=== PATIENT | female | born 1990 | race Caucasian/White ===

== ENCOUNTER 2023-11-20 11:45 | Emergency (ER) | payer OTHER ==
--- NOTE | 2023-11-20 13:47 | XRAY Report ---
PROCEDURE: Chest 1V INDICATIONS: cough 6 weeks. TECHNIQUE: One view of the chest was acquired. COMPARISON: None. FINDINGS: Surgical changes and devices: None. Lungs and pleura: No pleural effusions or pneumothorax. Lungs are clear. Mediastinum: Mediastinal contours appear normal. Heart size is normal. Bones and chest wall: No suspicious bony lesions. Overlying soft tissues appear unremarkable. IMPRESSION: No acute cardiopulmonary process. No focal infiltrates are seen. Reviewed by: Alexis Schuster MD on 11/20/2023 12:46 PM [facility] Approved by: Alexis Schuster MD on 11/20/2023 12:46 PM [facility] Station ID: [id number]
--- NOTE | 2023-11-20 17:08 | ED Physician Documentation ---
PD HPI URI - Stated complaint Stated Complaint: COUGH [id number] - Chief complaint Chief Complaint: Resp - History obtained from History obtained from: Patient - Additional information Additional information: Patient is a 33-year-old female presenting for evaluation of a dry cough that has been present for the past 5 weeks along with nasal congestion. Patient states that she has been using an [id number] Synex nasal decongestant for the past week and her congestion has been getting worse. She says that when her symptoms initially started she had some other symptoms that felt flulike but she tested negative for flu, COVID and RSV. Her cough is sometimes productive of yellow sputum. She states that the cough is worse at night. She also reports having a sore throat. No fevers. No chest pain or shortness of air. Denies recent travel or sick contacts. Review of Systems Constitutional: denies: Fever Nose: reports: Congestion Throat: reports: Sore throat Cardiac: denies: Chest pain / pressure Respiratory: reports: Cough. denies: Dyspnea GI: denies: Vomiting PD PAST MEDICAL HISTORY - Past Medical History Past Medical History: No - Past Surgical History Past Surgical History: No - Allergies Allergies/Adverse Reactions: Allergies Allergy/AdvReac Type Severity Reaction Status Date / Time No Known Drug Allergies Allergy Verified 11/20/23 12:18 - Social History Does the pt smoke?: No Smoking Status: Never smoker Does the pt drink ETOH?: No Does the pt have substance abuse?: No - Immunizations Immunizations are current?: Yes PD ED PE NORMAL - General General: Alert and oriented X 3, No acute distress, Well developed/nourished - HEENT HEENT: Atraumatic, Ears normal, Moist mucous membranes, Pharynx benign - Neck Neck: Supple, no meningeal sign, No adenopathy - Cardiac Cardiac: RRR, No murmur - Respiratory Respiratory: No respiratory distress, Clear bilaterally - Derm Derm: Warm and dry - Neuro Neuro: Normal speech Results - Vitals Vitals: Vital Signs - 24 hr 11/20/23 11/20/23 12:14 17:54 Temperature 36.1 C L 36.7 C Heart Rate 88 97 Respiratory 16 18 Rate Blood Pressure 138/92 H 115/65 O2 Saturation 100 99 Oxygen O2 Source Room air - Labs Labs: Laboratory Tests 11/20/23 11/20/23 16:53 16:53 Nasal Adenovirus (PCR) NOT DETECTED Nasal B. parapertussis DNA (PCR) NOT DETECTED Nasal Coronavir 229E PCR NOT DETECTED Nasal Coronavir HKU1 PCR NOT DETECTED Nasal Coronavir NL63 PCR NOT DETECTED Nasal Coronavir OC43 PCR NOT DETECTED Nasal Enterovir/Rhinovir PCR DETECTED A Nasal Influenza B PCR NOT DETECTED Nasal Influenza A PCR NOT DETECTED Nasal Parainfluen 1 PCR NOT DETECTED Nasal Parainfluen 2 PCR NOT DETECTED Nasal Parainfluen 3 PCR NOT DETECTED Nasal Parainfluen 4 PCR NOT DETECTED Nasal RSV (PCR) NOT DETECTED Nasal B.pertussis DNA PCR NOT DETECTED Nasal C.pneumoniae (PCR) NOT DETECTED Giacomo Human Metapneumo PCR NOT DETECTED Nasal M.pneumoniae (PCR) NOT DETECTED Nasal SARS-CoV-2 (PCR) NOT DETECTED Group A Strep Rapid Negative PD Medical Decision Making - ED course Complexity details: reviewed results, re-evaluated patient, d/w patient ED course: Patient is a 33-year-old female presenting for evaluation of cough and nasal congestion that been ongoing for several weeks. Her vital signs are stable. Her lung sounds are clear. She does not smoke. Chest x-ray which I reviewed is negative for signs of focal consolidation or pneumonia or effusion. Strep test was ordered which is negative. Patient was given a dose of Decadron for viral pharyngitis. Respiratory swab is pending. Patient counseled that she should stop the sinus nasal spray as it appears to be oxymetazoline And I did advise that this could be making her nasal congestion worse. Patient counseled on continued supportive care as well as concerning symptoms to return for. Departure - Departure Disposition: 01 Home, Self Care Clinical Impression: Upper respiratory infection Condition: Stable Instructions: ED Viral Syndrome Comments: Your chest x-ray does not show pneumonia. Please stop taking the sinus nasal spray as this can cause worsening congestion is used more than 3 days. You may benefit from a trial of using a saline spray in the nose to help loosen any congestion. Your strep test is negative. I have given you a dose of Decadron to see if this will help with the inflammation you are feeling in your throat as well as may help with your postviral cough. Your respiratory panel is pending. This will check for COVID, influenza, RSV and a number of other common cold viruses. We will notify you if it is positive for COVID. Otherwise you can check the patient portal for your results. You should quarantine from others until you know your COVID result. Please continue with acetaminophen or ibuprofen as needed for fevers and body aches, plenty of fluids/hydration and rest. Return to the ER with any worsening symptoms such as difficulty breathing or vomiting. Forms: PCP List Discharge Date/Time: 11/20/23 17:54
[2023-11-20 17:10] LABS: RAPID STREP SCREEN Negative (Negative)
[2023-11-20] MEDS ORDERED: CHERRY SYRUP 10 ML UDC PO ONE (17:23)
[2023-11-20] MEDS ORDERED: DEXAMETHASONE 10 MG/ML VIAL PO STA (17:23)
[2023-11-20 17:52] LABS: B. PARAPERTUSSIS- RESP PCR PAN NOT DETECTED; B. PERTUSSIS- RESP PCR PANEL NOT DETECTED; C. PNEUMONIAE- RESP PCR PANEL NOT DETECTED; CORONAVIRUS 229E-RESP PCR NOT DETECTED; CORONAVIRUS HKU1-RESP PCR NOT DETECTED; CORONAVIRUS NL63-RESP PCR NOT DETECTED; CORONAVIRUS OC43-RESP PCR NOT DETECTED; HUMAN METAPNEUMOVIRUS NOT DETECTED; INFLUENZA A- RESP PCR PANEL NOT DETECTED; INFLUENZA B - RESP PCR PANEL NOT DETECTED; M. PNEUMONIAE- RESP PCR PANEL NOT DETECTED; PARAINFLUENZA VIRUS 1 NOT DETECTED; PARAINFLUENZA VIRUS 2 NOT DETECTED; PARAINFLUENZA VIRUS 3 NOT DETECTED; PARAINFLUENZA VIRUS 4 NOT DETECTED; RHINOVIRUS/ENTEROVIRUS DETECTED; RSV- RESP PCR PANEL NOT DETECTED; SARS-CoV-2 -RESP PCR PANEL NOT DETECTED
[2023-11-20 17:59] VITALS: BP 115/65; O2SAT 99
== END 2023-11-20 17:54 | disposition home or self-care (01) ==
LOC: ED 11:45
DX: J06.9 Acute upper respiratory infection, unspecified (principal)
CPT/HCPCS: 71045; 87070; 87430; 87633; 99283; 99284; A9270

== ENCOUNTER 2024-01-28 08:00 | Outpatient (CLI) | payer OTHER ==
[2024-01-28 15:48] LABS: BILIRUBIN,URINE NEGATIVE (NEGATIVE); GLUCOSE, URINE (UA) NEGATIVE (NEGATIVE); KETONES,URINE (UA) NEGATIVE (NEGATIVE); LEUKOCYTE ESTERASE, URINE NEGATIVE (NEGATIVE); NITRITE,URINE NEGATIVE (NEGATIVE); OCCULT BLOOD,URINE NEGATIVE (NEGATIVE); PROTEIN,URINE NEGATIVE (NEGATIVE); UROBILINOGEN,URINE 0.2 (NORMAL) E.U./dL (NORMAL)
[2024-01-28 15:51] LABS: CLARITY,URINE CLEAR (CLEAR)
[2024-01-28 16:32] LABS: AMORPHOUS SEDIMENT,UR Few /LPF; BACTERIA,URINE Many /HPF (None Seen); RBC,URINE 0-5 /HPF (0-5); SQUAMOUS EPITHELIAL CELL,UR MOD Squamous (<= Few); WBC,URINE 0-3 /HPF (0-5)
== END 2024-01-28 23:59 | disposition home or self-care (01) ==
LOC: LAB.WC 08:00
PROVIDERS: ATTEND Nurse Practitioner
DX: Z34.90 Encounter for supervision of normal pregnancy, unspecified, unspecified trimester (principal)
CPT/HCPCS: 81001; 87086

== ENCOUNTER 2024-02-11 09:46 | Outpatient (CLI) | payer OTHER ==
[2024-02-11 10:42] LABS: BASOPHILS # (AUTO) 0.1 10^3/uL (0.0-0.1); BASOPHILS % (AUTO) 0.7 %; EOSINOPHILS # (AUTO) 0.4 10^3/uL (0.0-0.7); EOSINOPHILS % (AUTO) 3.2 %; HCT - HEMATOCRIT 40.8 % (37.0-47.0); HGB - HEMOGLOBIN 13.7 g/dL (12.0-16.0); LYMPHOCYTES # (AUTO) 2.3 10^3/uL (1.5-3.5); LYMPHOCYTES % (AUTO) 19.3 %; MEAN CORPUSCULAR HEMOGLOBIN 29.8 pg (27.0-31.0); MEAN CORPUSCULAR HGB CONC 33.6 g/dL (32.0-36.0); MEAN CORPUSCULAR VOLUME 88.7 fL (81.0-99.0); MEAN PLATELET VOLUME 8.7 fL (7.9-10.8); MONOCYTES # (AUTO) 0.7 10^3/uL (0.0-1.0); MONOCYTES % (AUTO) 5.7 %; NEUTROPHILS # (AUTO) 8.2 10^3/uL (1.5-6.6); NEUTROPHILS % (AUTO) 70.5 %; PLT - PLATELET COUNT 421 10^3/uL (130-450); WHITE BLOOD COUNT 11.7 x10^3/uL (4.8-10.8)
--- NOTE | 2024-02-11 12:47 | Ultrasound Report ---
PROCEDURE: OB 1st Trimester INDICATIONS: POSITIVE TEST OUTSIDE/PRIOR DATING DATA: Last menstrual period (LMP): 11/19/2023. LMP-based estimated date of delivery (ASIM): 08/25/2024. First dating scan (date and location): Today. Estimated date of delivery (ASIM) from first dating scan: 08/30/2024. TECHNIQUE: Real-time scanning was performed of the fetus and maternal pelvic organs, with image documentation. COMPARISON: None. FINDINGS: Intrauterine gestational sac present. Intrauterine gestation. heart motion is detect ed measuring a rate of 173 bpm. [place]-rump length is 4.48 cm, 11 weeks and 2 days. Unremarkable partially visualized adnexal structures. The left ovary is not well seen. IMPRESSION: Living intrauterine gestation at an ultrasound age of 11 weeks and 2 days. This is concordant with re ported LMP. Reviewed by: Harsha Arceo MD on 02/11/2024 12:46 PM PDT Approved by: Harsha Arceo MD on 02/11/2024 12:46 PM PDT Station ID: [id number]
[2024-02-12 05:11] LABS: HBsAG SCREEN Negative (Negative); HCV AB Non Reactive (Non Reactive)
[2024-02-12 07:09] LABS: HIV SCREEN 4TH GENERATION Non Reactive (Non Reactive); RPR Non Reactive (Non Reactive)
[2024-02-12 08:10] LABS: VARICELLA-ZOSTER AB IGG 2216 index (Immune >165)
== END 2024-02-11 09:47 | disposition home or self-care (01) ==
LOC: DI 09:46
PROVIDERS: ATTEND Nurse Practitioner
DX: Z34.91 Encounter for supervision of normal pregnancy, unspecified, first trimester (principal)
CPT/HCPCS: 36415; 85025; 86592; 86762; 86787; 86803; 86850; 86900; 86901; 87340; 87389

== ENCOUNTER 2024-04-13 18:38 | Outpatient (CLI) | payer OTHER ==
--- NOTE | 2024-04-14 10:29 | Ultrasound Report ---
PROCEDURE: OB Anatomy Scan INDICATIONS: SUPERVISION OF OUTSIDE/PRIOR DATING DATA: Last menstrual period (LMP): 11/19/2023. LMP-based estimated date of delivery (ASIM): 08/25/2024. First dating scan (date and location): 02/11/2024. Estimated date of delivery (ASIM) from first dating scan: 08/30/2024. The below data below was generated using the clinical ASIM of 08/25/2024 TECHNIQUE: Real-time scanning was performed of the fetus, with image documentation and biometric measurements. Endovaginal scanning: Not performed. COMPARISON: OB ultrasound 02/11/2024 FINDINGS: General: A single living intrauterine gestation is present. Presentation: Vertex Placenta: Placental position is posterior, without previa. Amniotic fluid index: 17.8 cm, within normal limits for gestational age. heart rate: 158 beats per minute. Maternal cervical canal: 4.7 cm long; normal length is 2.5 cm or more. biometrics: Biparietal diameter: 5.2 cm, 21 weeks 6 days, 84th percentile Head circumference: 18.6 cm, 21 weeks 0 days, 45th percentile Abdominal circumference: 15.9 cm, 21 weeks 0 days, 50th percentile Femur length: 3.5 cm, 20 weeks 6 days, 41st percentile Estimated gestational age from initial scan: 20 weeks 6 days Composite gestational age from present scan: 21 weeks 0 days Estimated weight and percentile: 391 g, 52nd percentile Measurement variability in biometric dating: +/- 10 days from 12-20 weeks gestation, +/- 2 weeks from 20-30 weeks gestation, +/- 3 weeks at 30 weeks gestation or later. Anatomic survey: Neuro: Ventricles are normal at less than 10 mm. Cisterna magna is normal at 3-11 mm. Cerebellum i s normal in size and morphology. Nuchal skin fold: Normal at less than 6 mm between 14 and 20 weeks gestational age. Face: Nose and lips, facial profile are normal. Spine: No evidence for spina bifida. Heart: 4-chambered heart is present, with normal ventricular outflow tracts. Diaphragm: Diaphragm is intact. Stomach: Left-sided stomach is present. Kidneys: No hydronephrosis. Normal is less than 5 mm in 2nd trimester, less than 7 mm in 3rd trimester. Cord: 3 vessel cord has orthotopic insertion. Bladder: Normal in size. Extremities: All 4 extremities are visualized. IMPRESSION: 1.Single live intrauterine with appropriate interval growth. 2. anatomic survey is within normal limits. Reviewed by: Tyson Romero MD on 04/14/2024 10:27 AM PDT Approved by: Tyson Romero MD on 04/14/2024 10:27 AM PDT Station ID: [id number]
== END 2024-04-13 18:39 | disposition home or self-care (01) ==
LOC: DI 18:38
PROVIDERS: ATTEND Nurse Practitioner
DX: Z34.92 Encounter for supervision of normal pregnancy, unspecified, second trimester (principal)

== ENCOUNTER 2024-05-07 04:57 | Emergency (ER) | payer OTHER ==
--- NOTE | 2024-05-07 05:26 | ED Physician Documentation ---
History of Present Illness - Stated complaint Stated Complaint: [place]/RUN DOWN - Chief complaint Chief Complaint: Neuro - History obtained from History obtained from: Patient - Additonal information Additional information: HPI from patient. Patient is 23 weeks , has had US in this . c/o 1-2 days of rhinorhhea, sinus congestion, sore throat, generalized body aches, chills/sweats (feels like she has been having fevers but does not have working thermometer at home). No -related c/o (denies abdominal/pelvic pain, vaginal bleeding). Denies dyspnea, cough. PD PAST MEDICAL HISTORY - Past Medical History Past Medical History: No - Past Surgical History Past Surgical History: No - Present Medications Home Medications: Ambulatory Orders Medication Instructions Recorded Confirmed Nirmatrelvir/Ritonavir [Paxlovid 1 tab PO BID #1 kit 05/07/24 300-100 mg Dose Pack] - Allergies Allergies/Adverse Reactions: Allergies Allergy/AdvReac Type Severity Reaction Status Date / Time No Known Drug Allergies Allergy Verified 05/07/24 05:01 - Social History Does the pt smoke?: No Smoking Status: Never smoker Does the pt drink ETOH?: No Does the pt have substance abuse?: No - Immunizations Immunizations are current?: Yes PD ED PE NORMAL - Vitals Vital signs reviewed: Yes - General General: Alert and oriented X 3, No acute distress, Well developed/nourished - HEENT HEENT: Moist mucous membranes - Neck Neck: Supple, no meningeal sign - Cardiac Cardiac: RRR, No murmur - Respiratory Respiratory: No respiratory distress, Clear bilaterally - Abdomen Abdomen: Soft, Non tender PD ED PE EXPANDED - HEENT HEENT: Pharyngeal erythema (trace bilateral erythema with trace/minimal posterior oropharyngeal edema. airway is widely patent) Results - Vitals Vitals: Oxygen O2 Source Room air - Labs Labs: Microbiology 05/07/24 05:10 Group A Strep Throat Culture - Preliminary Throat Laboratory Tests 05/07/24 05/07/24 05:10 05:10 Nasal Adenovirus (PCR) NOT DETECTED Nasal B. parapertussis DNA (PCR) NOT DETECTED Nasal Coronavir 229E PCR NOT DETECTED Nasal Coronavir HKU1 PCR NOT DETECTED Nasal Coronavir NL63 PCR NOT DETECTED Nasal Coronavir OC43 PCR NOT DETECTED Nasal Enterovir/Rhinovir PCR NOT DETECTED Nasal Influenza B PCR NOT DETECTED Nasal Influenza A PCR NOT DETECTED Nasal Parainfluen 1 PCR NOT DETECTED Nasal Parainfluen 2 PCR NOT DETECTED Nasal Parainfluen 3 PCR NOT DETECTED Nasal Parainfluen 4 PCR NOT DETECTED Nasal RSV (PCR) NOT DETECTED Nasal B.pertussis DNA PCR NOT DETECTED Nasal C.pneumoniae (PCR) NOT DETECTED [place] Human Metapneumo PCR NOT DETECTED Nasal M.pneumoniae (PCR) NOT DETECTED Nasal SARS-CoV-2 (PCR) DETECTED A Group A Strep Rapid Negative PD Medical Decision Making - ED course Complexity details: considered differential, d/w patient ED course: Symptoms of URI without respiratory difficulty (no coughing, dyspnea) in setting of 23-week . Rapid strep negative. Respiratory PCR panel positive for SARS-CoV-2 (COVID). Results d/w patient. We discussed treatment options, specifically anti-virals, and, more specifically, Paxlovid. After much discussion, she is not interested in this medication but is willing to take printed rx at discharge. We discussed risks vs benefits, with emphasis on two risk factors for progression to severe disease from COVID (BMI and ). I made it clear that I was recommending she take the Paxlovid but also that it is entirely her choice. I encouraged her to speak with her director of the biophysics facility if she is undecided for further discussion of risks/benefits. Departure - Departure Disposition: 01 Home, Self Care Clinical Impression: COVID-19 Condition: Good Instructions: ED Viral Syndrome Prescriptions: Nirmatrelvir/Ritonavir [Paxlovid 300-100 mg Dose Pack] 1 tab PO BID #1 kit Comments: Your strep test was negative. However, the nasal swab tested positive for COVID. I am providing you with a prescription for antiviral medications that reduce the risk of severe illness due to COVID. There is a list of risk factors that place one at risk for severe illness and you have two: and body mass index over 25. From the CDC website: "If you are or were recently , you are: More likely to get very sick from COVID-19 compared to those who are not . More likely to need hospitalization, intensive care, or the use of a ventilator or special equipment to breathe if you do get sick from COVID-19. Severe COVID- 19 illness can lead to . At increased risk of complications that can affect your and baby including, or stillbirth." Discharge Date/Time: 05/07/24 07:40
[2024-05-07 05:47] LABS: RAPID STREP SCREEN Negative (Negative)
[2024-05-07 06:36] LABS: CORONAVIRUS 229E-RESP PCR NOT DETECTED; CORONAVIRUS HKU1-RESP PCR NOT DETECTED; CORONAVIRUS NL63-RESP PCR NOT DETECTED; CORONAVIRUS OC43-RESP PCR NOT DETECTED
[2024-05-07 06:38] LABS: B. PARAPERTUSSIS- RESP PCR PAN NOT DETECTED; B. PERTUSSIS- RESP PCR PANEL NOT DETECTED; C. PNEUMONIAE- RESP PCR PANEL NOT DETECTED; HUMAN METAPNEUMOVIRUS NOT DETECTED; INFLUENZA A- RESP PCR PANEL NOT DETECTED; INFLUENZA B - RESP PCR PANEL NOT DETECTED; M. PNEUMONIAE- RESP PCR PANEL NOT DETECTED; PARAINFLUENZA VIRUS 1 NOT DETECTED; PARAINFLUENZA VIRUS 2 NOT DETECTED; PARAINFLUENZA VIRUS 3 NOT DETECTED; PARAINFLUENZA VIRUS 4 NOT DETECTED; RHINOVIRUS/ENTEROVIRUS NOT DETECTED; RSV- RESP PCR PANEL NOT DETECTED; SARS-CoV-2 -RESP PCR PANEL DETECTED
[2024-05-07 07:48] VITALS: BP 122/79; O2SAT 99
== END 2024-05-07 07:40 | disposition home or self-care (01) ==
LOC: ED 04:57
DX: O98.512 Other viral diseases complicating pregnancy, second trimester (principal); U07.1 COVID-19; Z3A.23 23 weeks gestation of pregnancy; Z20.818 Contact with and (suspected) exposure to other bacterial communicable diseases; Z20.828 Contact with and (suspected) exposure to other viral communicable diseases
CPT/HCPCS: 87070; 87430; 87633; 99283; 99284

== ENCOUNTER 2024-06-06 07:29 | Outpatient (CLI) | payer OTHER ==
[2024-06-06 08:44] LABS: HCT - HEMATOCRIT 37.6 % (37.0-47.0); HGB - HEMOGLOBIN 12.2 g/dL (12.0-16.0); MEAN CORPUSCULAR HEMOGLOBIN 30.3 pg (27.0-31.0); MEAN CORPUSCULAR HGB CONC 32.4 g/dL (32.0-36.0); MEAN CORPUSCULAR VOLUME 93.3 fL (81.0-99.0); MEAN PLATELET VOLUME 9.1 fL (7.9-10.8); RED BLOOD COUNT 4.03 10^6/uL (4.20-5.40); RED CELL DISTRIBUTION WIDTH 12.6 % (12.0-15.0); WHITE BLOOD COUNT 13.3 x10^3/uL (4.8-10.8)
[2024-06-07 06:12] LABS: RPR Non Reactive (Non Reactive)
== END 2024-06-06 07:30 | disposition home or self-care (01) ==
LOC: LAB 07:29
PROVIDERS: ATTEND Obstetrics & Gynecology
DX: Z34.90 Encounter for supervision of normal pregnancy, unspecified, unspecified trimester (principal)
CPT/HCPCS: 36415; 82950; 85027; 86592

== ENCOUNTER 2024-06-15 07:29 | Outpatient (CLI) | payer OTHER ==
[2024-06-15 08:38] LABS: GTT GLUCOSE,FASTING 78 mg/dL (74-109)
== END 2024-06-15 07:30 | disposition home or self-care (01) ==
LOC: LAB 07:29
PROVIDERS: ATTEND Obstetrics & Gynecology
DX: O99.810 Abnormal glucose complicating pregnancy (principal)
CPT/HCPCS: 36415; 82951; 82952

== ENCOUNTER 2024-07-20 03:27 | Emergency (ER) | payer OTHER ==
--- NOTE | 2024-07-20 04:06 | ED Physician Documentation ---
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 Note that her spouse had COVID last week and she had COVID a month ago. PD PAST MEDICAL HISTORY - Past Medical History Past Medical History: No - Past Surgical History Past Surgical History: No - Present Medications Home Medications: Ambulatory Orders Medication Instructions Recorded Confirmed Nirmatrelvir/Ritonavir [Paxlovid 1 tab PO BID #1 kit 05/07/24 300-100 mg Dose Pack] Albuterol Sulf [Ventolin Hfa 1 - 2 puffs INH Q4HR PRN #18 gm 07/20/24 Inhaler] - Allergies Allergies/Adverse Reactions: Allergies Allergy/AdvReac Type Severity Reaction Status Date / Time No Known Drug Allergies Allergy Verified 05/07/24 05:01 - Social History Does the pt smoke?: No Smoking Status: Never smoker Does the pt drink ETOH?: No Does the pt have substance abuse?: No - Immunizations Immunizations are current?: Yes PD ED PE NORMAL - Vitals Vital signs reviewed: Yes - General General: Alert and oriented X 3, No acute distress, Well developed/nourished - HEENT HEENT: Atraumatic, PERRL, EOMI, Moist mucous membranes, Pharynx benign - Neck Neck: Supple, no meningeal sign - Cardiac Cardiac: RRR - Respiratory Respiratory: Other (BL expiratory wheezing) - Abdomen Abdomen: Non tender, Non distended - Derm Derm: Normal color, Warm and dry - Extremities Extremities: No deformity - Neuro Neuro: Alert and oriented X 3, No motor deficit, No sensory deficit Results - Vitals Vitals: Vital Signs - 24 hr 07/20/24 07/20/24 07/20/24 03:33 04:15 04:20 Temperature 36.6 C Heart Rate 82 84 92 Respiratory 20 28 H 18 Rate Blood Pressure 135/83 H 110/80 O2 Saturation 100 100 07/20/24 07/20/24 04:53 05:24 Temperature Heart Rate 88 88 Respiratory 16 16 Rate Blood Pressure 106/74 106/65 O2 Saturation 98 98 Oxygen O2 Source Room air - Labs Labs: Laboratory Tests 07/20/24 07/20/24 07/20/24 03:37 04:18 04:18 WBC 12.6 H RBC 4.23 Hgb 12.8 Hct 37.9 MCV 89.6 MCH 30.3 MCHC 33.8 RDW 12.6 Plt Count 377 MPV 9.6 Neut # (Auto) 8.0 H Lymph # (Auto) 2.7 [place] # (Auto) 0.7 Eos # (Auto) 0.8 H Baso # (Auto) 0.1 Absolute Nucleated RBC 0.00 Nucleated RBC % 0.0 Sodium 136 Potassium 3.8 Chloride 105 Carbon Dioxide 23 Anion Gap 8.0 BUN 10 Creatinine 0.5 L Estimated GFR (MDRD) 142 Glucose 80 Calcium 9.4 Total Bilirubin 0.3 AST 24 ALT 60 Alkaline Phosphatase 127 H Total Protein 6.9 Albumin 3.5 Globulin 3.4 Albumin/Globulin Ratio 1.0 Lipase 17 Urine Color Urine Clarity Urine pH Ur Specific [place] Urine Protein Urine Glucose (UA) Urine Ketones Urine Occult Blood Urine Nitrite Urine Bilirubin Urine Urobilinogen Ur Leukocyte Esterase Ur Microscopic Review Urine Culture Comments Nasal Adenovirus (PCR) NOT DETECTED Nasal B. parapertussis DNA (PCR) NOT DETECTED Nasal Coronavir 229E PCR NOT DETECTED Nasal Coronavir HKU1 PCR NOT DETECTED Nasal Coronavir NL63 PCR NOT DETECTED Nasal Coronavir OC43 PCR NOT DETECTED Nasal Enterovir/Rhinovir PCR NOT DETECTED Nasal Influenza B PCR NOT DETECTED Nasal Influenza A PCR NOT DETECTED Nasal Parainfluen 1 PCR NOT DETECTED Nasal Parainfluen 2 PCR NOT DETECTED Nasal Parainfluen 3 PCR NOT DETECTED Nasal Parainfluen 4 PCR NOT DETECTED Nasal RSV (PCR) NOT DETECTED Nasal B.pertussis DNA PCR NOT DETECTED Nasal C.pneumoniae (PCR) NOT DETECTED Giacomo Human Metapneumo PCR NOT DETECTED Nasal M.pneumoniae (PCR) NOT DETECTED Nasal SARS-CoV-2 (PCR) NOT DETECTED 07/20/24 05:24 WBC RBC Hgb Hct MCV MCH MCHC RDW Plt Count MPV Neut # (Auto) Lymph # (Auto) [place] # (Auto) Eos # (Auto) Baso # (Auto) Absolute Nucleated RBC Nucleated RBC % Sodium Potassium Chloride Carbon Dioxide Anion Gap BUN Creatinine Estimated GFR (MDRD) Glucose Calcium Total Bilirubin AST ALT Alkaline Phosphatase Total Protein Albumin Globulin Albumin/Globulin Ratio Lipase Urine Color YELLOW Urine Clarity CLEAR Urine pH 7.0 Ur Specific [place] 1.015 Urine Protein NEGATIVE Urine Glucose (UA) NEGATIVE Urine Ketones NEGATIVE Urine Occult Blood TRACE-INTA Urine Nitrite NEGATIVE Urine Bilirubin NEGATIVE Urine Urobilinogen 0.2 (NORMAL) Ur Leukocyte Esterase NEGATIVE Ur Microscopic Review NOT INDICATED Urine Culture Comments NOT INDICATED Nasal Adenovirus (PCR) Nasal B. parapertussis DNA (PCR) Nasal Coronavir 229E PCR Nasal Coronavir HKU1 PCR Nasal Coronavir NL63 PCR Nasal Coronavir OC43 PCR Nasal Enterovir/Rhinovir PCR Nasal Influenza B PCR Nasal Influenza A PCR Nasal Parainfluen 1 PCR Nasal Parainfluen 2 PCR Nasal Parainfluen 3 PCR Nasal Parainfluen 4 PCR Nasal RSV (PCR) Nasal B.pertussis DNA PCR Nasal C.pneumoniae (PCR) Giacomo Human Metapneumo PCR Nasal M.pneumoniae (PCR) Nasal SARS-CoV-2 (PCR) PD Medical Decision Making - ED course ED course: 34yF p/w soa, cp, vision changes, cough, sinus drainage for the past couple hours. spouse was sick last week with covid and she had covid last month. initial BP is borderline elevated. plan to monitor the patient for preeclampsia in the ED. feeling better s/p duoneb. plan to dc home to f/u with pcp. return precautions given. Departure - Departure Disposition: 01 Home, Self Care Clinical Impression: Cough, Chest pain, Shortness of breath Condition: Stable Instructions: ED URI Viral Prescriptions: Albuterol Sulf [Ventolin Hfa Inhaler] 1 - 2 puffs INH Q4HR PRN #18 gm PRN Reason: Shortness Of Air/Wheezing Comments: You were seen in the emergency department for viral upper respiratory infection. Please follow-up with your lobby attendant and return to the emergency department if you have any new or worsening symptoms or other concerns. Forms: PCP List Discharge Date/Time: 07/20/24 05:47
[2024-07-20] MEDS: IPRATROPIUM/ALBUTEROL 3 ML NEB INH STA (04:15)
[2024-07-20 04:23] LABS: BASOPHILS # (AUTO) 0.1 10^3/uL (0.0-0.1); BASOPHILS % (AUTO) 0.9 %; EOSINOPHILS # (AUTO) 0.8 10^3/uL (0.0-0.7); EOSINOPHILS % (AUTO) 6.4 %; HCT - HEMATOCRIT 37.9 % (37.0-47.0); HGB - HEMOGLOBIN 12.8 g/dL (12.0-16.0); LYMPHOCYTES # (AUTO) 2.7 10^3/uL (1.5-3.5); LYMPHOCYTES % (AUTO) 21.6 %; MEAN CORPUSCULAR HEMOGLOBIN 30.3 pg (27.0-31.0); MEAN CORPUSCULAR HGB CONC 33.8 g/dL (32.0-36.0); MEAN CORPUSCULAR VOLUME 89.6 fL (81.0-99.0); MEAN PLATELET VOLUME 9.6 fL (7.9-10.8); MONOCYTES # (AUTO) 0.7 10^3/uL (0.0-1.0); MONOCYTES % (AUTO) 5.6 %; NEUTROPHILS % (AUTO) 63.1 %; PLT - PLATELET COUNT 377 10^3/uL (130-450); RED BLOOD COUNT 4.23 10^6/uL (4.20-5.40); RED CELL DISTRIBUTION WIDTH 12.6 % (12.0-15.0); WHITE BLOOD COUNT 12.6 x10^3/uL (4.8-10.8)
[2024-07-20 04:40] LABS: ALBUMIN 3.5 g/dL (3.2-5.5); BILIRUBIN,TOTAL 0.3 mg/dL (0.2-1.0); CALCIUM 9.4 mg/dL (8.5-10.3); CREATININE 0.5 mg/dL (0.6-1.3); POTASSIUM 3.8 mmol/L (3.5-4.5); TOTAL PROTEIN 6.9 g/dL (6.4-8.9)
[2024-07-20 04:41] LABS: B. PARAPERTUSSIS- RESP PCR PAN NOT DETECTED; B. PERTUSSIS- RESP PCR PANEL NOT DETECTED; C. PNEUMONIAE- RESP PCR PANEL NOT DETECTED; CORONAVIRUS 229E-RESP PCR NOT DETECTED; CORONAVIRUS HKU1-RESP PCR NOT DETECTED; CORONAVIRUS NL63-RESP PCR NOT DETECTED; CORONAVIRUS OC43-RESP PCR NOT DETECTED; HUMAN METAPNEUMOVIRUS NOT DETECTED; INFLUENZA A- RESP PCR PANEL NOT DETECTED; INFLUENZA B - RESP PCR PANEL NOT DETECTED; M. PNEUMONIAE- RESP PCR PANEL NOT DETECTED; PARAINFLUENZA VIRUS 1 NOT DETECTED; PARAINFLUENZA VIRUS 2 NOT DETECTED; PARAINFLUENZA VIRUS 3 NOT DETECTED; PARAINFLUENZA VIRUS 4 NOT DETECTED; RHINOVIRUS/ENTEROVIRUS NOT DETECTED; RSV- RESP PCR PANEL NOT DETECTED; SARS-CoV-2 -RESP PCR PANEL NOT DETECTED
[2024-07-20 04:57] VITALS: O2SAT 98
[2024-07-20 05:32] LABS: BILIRUBIN,URINE NEGATIVE (NEGATIVE); GLUCOSE, URINE (UA) NEGATIVE (NEGATIVE); KETONES,URINE (UA) NEGATIVE (NEGATIVE); LEUKOCYTE ESTERASE, URINE NEGATIVE (NEGATIVE); NITRITE,URINE NEGATIVE (NEGATIVE); OCCULT BLOOD,URINE TRACE-INTA (NEGATIVE); PROTEIN,URINE NEGATIVE (NEGATIVE); UROBILINOGEN,URINE 0.2 (NORMAL) E.U./dL (NORMAL)
[2024-07-20 05:36] LABS: CLARITY,URINE CLEAR (CLEAR)
[2024-07-20 05:45] VITALS: BP 106/65
== END 2024-07-20 05:47 | disposition home or self-care (01) ==
LOC: ED 03:27
DX: O99.513 Diseases of the respiratory system complicating pregnancy, third trimester (principal); J06.9 Acute upper respiratory infection, unspecified; I99.8 Other disorder of circulatory system; R07.9 Chest pain, unspecified; Z3A.34 34 weeks gestation of pregnancy; Z20.822 Contact with and (suspected) exposure to COVID-19; Z86.16 Personal history of COVID-19
CPT/HCPCS: 36415; 80053; 81001; 81003; 83690; 85025; 87086; 87633; 94640; 94664; 99283; 99284

== ENCOUNTER 2024-07-21 16:04 | Outpatient (CLI) | payer OTHER ==
--- NOTE | 2024-07-21 17:23 | Ultrasound Report ---
PROCEDURE: OB Follow up INDICATIONS: UTERINE SIZE-DATE DISCREPANCY OUTSIDE/PRIOR DATING DATA: Last menstrual period (LMP): 11/19/2023. LMP-based estimated date of delivery (ASIM): 08/25/2024. First dating scan (date and location): 02/11/2024. Estimated date of delivery (ASIM) from first dating scan: 08/30/2024. The below data below was generated using the clinical ASIM of 08/25/2024 TECHNIQUE: Real-time scanning was performed of the fetus, with image documentation and biometric measurements. Endovaginal scanning: Not performed. COMPARISON: 04/13/2024 FINDINGS: General: A single living intrauterine gestation is present. Presentation: Vertex Placenta: Placental position is posterior, without previa. Amniotic fluid index: 16.2 cm, 63 percentile for gestational age. heart rate: 145 beats per minute. Maternal cervical canal is not visualized biometrics: Biparietal diameter: 8.86 cm, 35 weeks 6 days, 75.5 percentile Head circumference: 32.41 cm, 36 weeks 5 days, 58.5 percentile Abdominal circumference: 30.98 cm, 34 weeks 6 days, 34.6 percentile Femur length: 6.62 cm, 34 weeks 1 day, 20.1 percentile Estimated gestational age from initial scan: 35 weeks 0 days Composite gestational age from present scan: 35 weeks 3 days Estimated weight and percentile: 2560 g, 45.7 percentile Measurement variability in biometric dating: +/- 10 days from 12-20 weeks gestation, +/- 2 weeks from 20-30 weeks gestation, +/- 3 weeks at 30 weeks gestation or more. Other: Not applicable. IMPRESSION: Single living intrauterine at 35 weeks 0 days, ASIM of 08/25/2024. Estimated weight of 2560 g, 46th percentile. Reviewed by: Dread Medina MD on 07/21/2024 5:21 PM PDT Approved by: Dread Medina MD on 07/21/2024 5:21 PM PDT Station ID: [id number]
== END 2024-07-21 16:05 | disposition home or self-care (01) ==
LOC: DI 16:04
PROVIDERS: ATTEND Nurse Practitioner
DX: O26.843 Uterine size-date discrepancy, third trimester (principal); Z3A.35 35 weeks gestation of pregnancy

== ENCOUNTER 2024-07-31 08:00 | Outpatient (CLI) | payer OTHER | END 2024-07-31 23:59 | disposition home or self-care (01) | LOC: LAB.WC 08:00 | PROVIDERS: ATTEND Nurse Practitioner | DX: Z34.90 Encounter for supervision of normal pregnancy, unspecified, unspecified trimester (principal) | CPT/HCPCS: 87081; 87797 ==

== ENCOUNTER 2024-08-23 22:09 | Inpatient (IN) ==
[2024-08-23 23:04] LABS: RUPTURE OF MEMBRANES PLUS POSITIVE (NEGATIVE)
[2024-08-23] MEDS ORDERED: SODIUM CHLORIDE FLUSH 0.9% 10 ML SYRINGE IVP SCH (23:45)
[2024-08-23 23:51] VITALS: BP 121/80
[2024-08-23] MEDS ORDERED: miSOPROStoL 200 MCG TABLET BC PRN (23:56)
[2024-08-23] MEDS ORDERED: LACTATED RINGERS 1,000 ML IV PRN (23:56)
[2024-08-23] MEDS ORDERED: miSOPROStoL 200 MCG TABLET PR PRN (23:56)
[2024-08-23] MEDS ORDERED: TERBUTALINE 1 MG/ML VIAL SUBQ PRN (23:56)
[2024-08-23] MEDS ORDERED: OXYTOCIN 10 UNIT/ML VIAL IM PRN (23:56)
[2024-08-23] MEDS ORDERED: lidocaine 1% 20 ML MDV ID PRN (23:56)
[2024-08-23] MEDS ORDERED: LABETALOL 20 MG/4 ML SYRINGE IVP PRN ×3 (23:56)
[2024-08-23] MEDS ORDERED: SODIUM CHLORIDE FLUSH 0.9% 10 ML SYRINGE IVP PRN (23:56)
[2024-08-23] MEDS ORDERED: NIFEdipine 10 MG CAPSULE PO PRN (23:56)
[2024-08-23] MEDS ORDERED: hydrALAZINE INJ 20 MG/ML VIAL IVP PRN (23:56)
[2024-08-23] MEDS ORDERED: CARBOPROST TROMETHAMINE 250 MCG/ML VIAL IM PRN (23:56)
[2024-08-23] MEDS ORDERED: fentaNYL 100 MCG/2 ML VIAL IVP PRN (23:56)
--- NOTE | 2024-08-23 23:57 | HISTORY & PHYSICAL EXAMINATION ---
Admit History Visit Reason Visit Reason: Membranes rupture (34yo at 39.5w presenting with leaking fluid 214408/23/24, mild contractions. ) : 1 Parity: 0 Care: positive [facility] Risk/History: positive Premature rupture membrane and Other (Impaired glucose tolerance: 1h GTT 158, passed 3h GCT) Smoking Status: Never smoker Mother's Labs Mother's Blood Type: positive A Mother's RH: positive Positive GBS: positive Group B Strep Positive Rubella Status: positive Immune HPI Current : Labor evaluation NST Procedure NST Procedure: EFM: 130s, moderate variability, positive 15x15 accelerations, no decelerations [place]: Irregular contractions Performed and read 08/23/24 Results and Plan Findings/Impression: ROMPlus positive Plan: Admitted for premature rupture of membranes Meds/Allgy Home Medications Ambulatory Orders Medication Instructions Recorded Confirmed Nirmatrelvir/Ritonavir [Paxlovid 1 tab PO BID #1 kit 05/07/24 300-100 Mg Dose Pack] albuterol sulfate 90 mcg/actuation 1 - 2 puff inhalation Q4HR PRN 07/20/24 aerosol inhaler (Ventolin HFA) Shortness Of Air/Wheezing #18 grams Allergies Allergies Allergy/AdvReac Type Severity Reaction Status Date / Time No Known Drug Allergies Allergy Verified 05/07/24 05:01 Physical Abdominal Exam Vital Signs: VSS Contraction Frequency (min/apart): 6 Contraction Intensity: positive Mild Uterine Resting Tone: positive Soft Monitoring Heart Rate Baseline: 130 Strip Review: positive Category I Presentation Presentation: positive Vertex (EFW 3400g) Vaginal Exam Membranes: positive Membranes ruptured Dilation (in cm): closed Effacement (%): 50 Station: positive -3 Cervical Position: positive Posterior Speculum Exam Findings: positive Gross leak and Other (POS ROMPLUS) Plan for Labor Plan For Labor I expect patient to be DC'd or transferred within 96 hours.: Yes Plan for Labor: 34yo at 39.5w by LMP consistent with 11w US, admitted with PROM, ruptured clear fluid 08/23 and cervix is closed. - Admit to FBP - T&S, CBC - GBS positive, ampicillin ordered - She would like period of expectant management, ok with misoprostol if not in labor. - Cat 1, may do intermittent monitoring prior to misoprostol. complicated by abnormal glucose intolerance, 1h GTT 158, passed 3h. Review of Systems Status of ROS: 10 or more systems reviewed and unremarkable except as noted in history and below [facility] Social History Social History Smoking Status: Never smoker Do you dip or chew tobacco?: No Do you vape?: No Do you feel safe in your home environment?: Yes Suffered physical, verbal, emotional, or financial abuse?: No History of Abuse: No Conclusion/Plan Lab Results Lab results reviewed: Yes
[2024-08-24] MEDS ORDERED: SODIUM CHLORIDE 0.65% NASAL SPRAY NAS PRN (00:03)
[2024-08-24 02:08] LABS: BASOPHILS # (AUTO) 0.1 10^3/uL (0.0-0.1); BASOPHILS % (AUTO) 0.6 %; EOSINOPHILS # (AUTO) 0.5 10^3/uL (0.0-0.7); EOSINOPHILS % (AUTO) 3.5 %; HGB - HEMOGLOBIN 12.4 g/dL (12.0-16.0); LYMPHOCYTES # (AUTO) 2.5 10^3/uL (1.5-3.5); LYMPHOCYTES % (AUTO) 19.4 %; MEAN CORPUSCULAR HEMOGLOBIN 30.1 pg (27.0-31.0); MEAN CORPUSCULAR HGB CONC 33.5 g/dL (32.0-36.0); MEAN CORPUSCULAR VOLUME 89.8 fL (81.0-99.0); MEAN PLATELET VOLUME 10.3 fL (7.9-10.8); MONOCYTES # (AUTO) 0.7 10^3/uL (0.0-1.0); MONOCYTES % (AUTO) 5.8 %; NEUTROPHILS # (AUTO) 8.8 10^3/uL (1.5-6.6); NEUTROPHILS % (AUTO) 69.5 %; PLT - PLATELET COUNT 368 10^3/uL (130-450); RED BLOOD COUNT 4.12 10^6/uL (4.20-5.40); RED CELL DISTRIBUTION WIDTH 13.7 % (12.0-15.0); WHITE BLOOD COUNT 12.7 x10^3/uL (4.8-10.8)
[2024-08-24] MEDS: AMPICILLIN 2 GM in SODIUM CHLORIDE 0.9% MINIBAG 100 ML IV ONE (02:08)
[2024-08-24] MEDS: miSOPROStoL 100 MCG TABLET BC SCH (06:24)
[2024-08-24] MEDS: AMPICILLIN 1 GM in SODIUM CHLORIDE 0.9% MINIBAG 100 ML IV SCH (06:25)
--- NOTE | 2024-08-24 11:19 | PHARMACY PROGRESS NOTE ---
Best Possible Medication History Admit Date and Time: 08/23/24 [id number] Processed by: Pharmacy Medications reviewed in ED?: No Medication History completed: Yes Patient Interview: Completed Secondary Source(s): Physician records and Insurance records [facility] Statement: As the person ultimately responsible for medication therapy, providers are able to order a medication from an existing home medication list in [facility] via the "Reconcile Routine" prior to Confirmation of that medication by arch support technician. Such practice is discouraged except when the physician, in their clinical judgment, deems that a medical need exists for a medication without regard to previous use.
[2024-08-24] MEDS: OXYTOCIN/SODIUM CHLORIDE 500 ML IV SCH (15:52)
[2024-08-24] MEDS: LACTATED RINGERS 1,000 ML IV SCH (15:53)
--- NOTE | 2024-08-24 16:49 | PROVIDER PROGRESS NOTE ---
Labor Progress Note Uterine Monitoring Uterine Monitoring Mode: positive External toco Contraction Intensity: positive Mild Monitoring Monitor Mode: positive External ultrasound Heart Rate Variability: positive Moderate (6-25 bmp) Accelerations: positive Present, 15x15 Decelerations: positive None Vaginal Exam Dilation (in cm): 2 Effacement (%): 50 Station: -3 Cervical Position: Posterior Labor Progress Note Labor Progress Note/Additional Text: S: Patient breathing through contractions. She is still able to talk through most of them but is rating them 7-8/10 on a pain scale and states they are becoming very uncomfortable. She has tried the jacuzzi and nitrous oxide for pain management. Her remains supportive at the bedside. She continues to experience leakage of clear vaginal fluid that has been pink-tinged over the past 30-45 minutes. O: FHR baseline 140s moderate variability, + accels, no decels Contractions palpate mild intermittently with soft resting tone SVE 2/50/-3, posterior, medium. Vertex. S/p 2 doses 50mcg BC misoprostol PROM x 19.5hrs - afebrile A: 34yo @ 39.6wks gestation PROM GBS negative FHR Category I P: Initiate pitocin for induction of labor now with titration per protocol. Continuous monitoring. Encouraged ambulation and position changes. Jacuzzi PRN. Nitrous oxide PRN. Epidural per maternal request. Anticipate .
[2024-08-24] MEDS ORDERED: ROPIVACAINE 0.2% 200 MG/100 ML BAG EP ONE (17:08)
[2024-08-24] MEDS ORDERED: LIDOCAINE 2%-EPI 1:100000 20 ML MDV ONE (17:08)
[2024-08-24] MEDS ORDERED: diphenhydrAMINE INJ 50 MG/ML VIAL IVP PRN (17:38)
[2024-08-24] MEDS ORDERED: METOCLOPRAMIDE 10 MG/2 ML VIAL IVP PRN (17:38)
[2024-08-24] MEDS ORDERED: ePHEDrine 50 MG/ML VIAL IVP PRN (17:38)
[2024-08-24] MEDS ORDERED: ONDANSETRON 4 MG/2 ML VIAL IVP PRN (17:38)
[2024-08-24] MEDS ORDERED: NALBUPHINE 10 MG/ML AMP IVP PRN (17:38)
[2024-08-24] MEDS ORDERED: LACTATED RINGERS 500 ML IV ONE (17:38)
[2024-08-24] MEDS ORDERED: ROPIVACAINE 0.2% 200 MG/100 ML BAG EP PRN (17:38)
[2024-08-24] MEDS ORDERED: NALOXONE 0.4 MG/ML VIAL IVP PRN (17:38)
--- NOTE | 2024-08-24 17:45 | ANESTHESIA PROCEDURE NOTE ---
Pre-Anesthesia VS, & Labs Diagnosis Surgical Diagnosis:: term labor pain Procedure Procedure: epidural for NPO Last Fluid Intake: t/o day Last Food Intake: t/o day Is Patient ?: Yes Lab Results Current Lab Results: Laboratory Tests 08/24/24 01:52: WBC 12.7 H, RBC 4.12 L, Hgb 12.4, Hct 37.0, MCV 89.8, MCH 30.1, MCHC 33.5, RDW 13.7, Plt Count 368, MPV 10.3, Neut # (Auto) 8.8 H, Lymph # (Auto) 2.5, [place] # (Auto) 0.7, Eos # (Auto) 0.5, Baso # (Auto) 0.1, Absolute Nucleated RBC 0.00, Nucleated RBC % 0.0, Blood Type A POSITIVE, Antibody Screen NEGATIVE 08/24/24 01:52 Meds/Allgy Home Medications Ambulatory Orders Medication Instructions Recorded Confirmed albuterol sulfate 90 mcg/actuation 1 - 2 puff inhalation Q4HR PRN 07/20/24 08/24/24 aerosol inhaler (Ventolin HFA) Shortness Of Air/Wheezing #18 grams aspirin 81 mg tablet,delayed 81 mg PO DAILY 08/24/24 08/24/24 release famotidine 20 mg tablet (Pepcid) 20 mg PO DAILY PRN REFLUX 08/24/24 08/24/24 vitamin no.167-folic acid 1 tab PO DAILY 08/24/24 08/24/24 400 mcg-dha 25 mg chewable tablet (One-A-Day ) Allergies Allergies Allergy/AdvReac Type Severity Reaction Status Date / Time No Known Drug Allergies Allergy Verified 08/24/24 08:06 [facility] Social History Social History Smoking Status: Never smoker Do you dip or chew tobacco?: No Do you vape?: No Do you feel safe in your home environment?: Yes Suffered physical, verbal, emotional, or financial abuse?: No History of Abuse: No Anesthesia Exam (Expanded) Exam General: Alert, Oriented x3 and Cooperative Dental: WNL Neck Mobility: Normal Mallampati classification: II Respiratory: No respiratory distress Cardiovascular: Regular rate Neurological: Normal speech Mental/Cognitive Status: Alert/Oriented X3 and Normal for patient Exam Constitutional normal general appearance Plan Plan Anesthesia Type: Epidural Consent for Procedure(s) Verified and Reviewed: Yes Code Status: Attempt Resuscitation ASA Classification ASA classification: 2-Mild systemic disease Is this case an emergency?: No
[2024-08-24] MEDS: OXYTOCIN/SODIUM CHLORIDE 500 ML IV PRN ×2 (18:11→21:21)
[2024-08-24] MEDS: TRANEXAMIC ACID IN NACL 1,000 MG/100 ML BAG IV PRN (21:20)
[2024-08-24] MEDS: METHYLERGONOVINE 0.2 MG/ML VIAL IM PRN (21:20)
[2024-08-24] MEDS ORDERED: OXYTOCIN/SODIUM CHLORIDE 500 ML IV PRN (22:08)
[2024-08-24] MEDS ORDERED: WITCH HAZEL/GLYCERIN 1 PAD TOP PRN (22:08)
--- NOTE | 2024-08-24 22:37 | DELIVERY NOTE ---
Delivery Note Delivery Comments (Free Text/Narrative) Delivery Comments (Free Text/Narrative): This 34 -year-old, G 1 P 0 08/23/2024 @39+5 weeks gestation by 11+2 week ultrasound consistent LMP presented to L&D shortly after SROM @ 2141. Cervix was closed, thick, and high vertex presentation by BSUS. GBS positive, treated. Misoprostol administered for cervical ripening followed by low dose oxytocin with a max dose of 6 mu/Min. FHR pattern demonstrated primarily category I tracing with a time of category II resolved with onset of pushing. Baseline FHT 130-140 baseline. Normal labor course. Epidural placed upon maternal request. She then progressed to complete/complete @ 1956 and second stage began. : Normal spontaneous vaginal delivery of a viable male on 08/24/2024 @ 2051. Nuchal x 1, reduced. The was placed on maternal abdomen, stimulated, dried and placed skin to skin. Apgars 8 & 9 @ 1 & 5 minutes. The umbilical cord was allowed to stop pulsating at which time it was doubly clamped by delivering provider and cut by FOB. 3VC. Cord blood was obtained. Fundal massage and gently cord traction applied for active management of the third stage, placenta delivered spontaneously and intact and appeared normal @ 2103. QBL 711cc. Placenta was not sent to pathology. Pitocin added to IV fluid for hemostasis and added to the IV fluid and allowed to run freely. Uterine massage was performed until uterus was deemed firm. Inspection of the perineum noted a second degree midline laceration. The laceration was repaired under adequate epidural anesthesia under sterile conditions in standard fashion with running 3-0 vicryl suture. Upon re- inspection the patient had persistent atony of lower uterine segment. TXA 1g was administered via IV concurrently with 0.2 mg IM Methergine. The uterus then became hemostatic. Needle and sponge counts were correct. Uterine fundus firm and there is no excessive bleeding. Tissues well approximated. Skin to skin initiated. Family bonding well. Both mother and baby are in stable condition.
[2024-08-24] MEDS: IBUPROFEN 800 MG TABLET PO PRN (22:50)
[2024-08-24] MEDS: ACETAMINOPHEN 500 MG TABLET PO PRN (22:51)
[2024-08-25] MEDS: HYDROCORTISONE 1% CREAM 28 GM TUBE TOP PRN (02:37)
--- NOTE | 2024-08-25 14:31 | PROVIDER PROGRESS NOTE ---
Subjective Prog Note Date Prog Note Date: 08/25/24 Prog Note Time: 12:15 Subjective Pt reports feeling: Improved Subjective: Patient reports she is doing well. Comfortable WITHOUT pain management Lochia appropriate. Denies heavy bleeding. Ambulating. Pelvic and perineal pain well-controlled. Tolerating oral intake. Diet: Regular. Voiding without difficulty. Passing flatus. Denies BM. Patient is bonding with baby in room Breast feeding going well. Denies feeling lightheaded, dizzy or excessively fatigued. Current Medications Current Medications Current Medications: Current Medications Generic Name Dose Route Start Last Admin Trade Name Freq PRN Reason Stop Dose Admin Acetaminophen 1,000 mg 08/24/24 22:08 08/25/24 08:11 Acetaminophen 500 Mg Tablet PO 1,000 mg Q8HR PRN Administration Mild Pain or Fever>38C(100.4F) Docusate Sodium 100 mg 08/25/24 09:00 Docusate Sodium 100 Mg Capsule PO BID WILL Hydrocortisone 1 applic 08/24/24 22:08 08/25/24 02:37 Hydrocortisone 1% Cream 28 Gm Tube TOP 1 applic QID PRN Administration PERINEAL REPAIR Ibuprofen 800 mg 08/24/24 22:08 08/25/24 08:11 Ibuprofen 800 Mg Tablet PO 800 mg Q8HR PRN Administration Moderate Pain (Level 4-6) Sodium Chloride 1 sprays 08/24/24 00:03 Sodium Chloride 0.65% Nasal Panacea CHARLES Q4HR PRN Nasal Congestion Witch Jelly/Glycerin 1 pad 08/24/24 22:08 Witch Jelly/Glycerin 1 Pad TOP PRN PRN PERINEAL REPAIR Objective Vital Signs/Intake & Output Vital Signs: Vital Signs x48h Temp Pulse Resp BP Pulse Ox 08/25/24 14:07 36.7 C 96 H 20 112/67 98 08/25/24 09:16 36.7 C 88 19 128/80 97 Intake & Output: Intake & Output 08/23/24 08/24/24 08/25/24 08/26/24 05:59 05:59 05:59 05:59 Intake Total 100 / 100 1815 / 181 Balance 100 / 100 1815 181 Weight (kg) 70.307 kg Objective Comments/Other: General: Alert, oriented, no apparent distress. Cardiovascular: No edema. Regular rate. Regular rhythm. Lungs: No increased work of breathing. Abdomen: Uterus firm. Below umbilicus. No guarding or rebound tendernes. Extremities: No pain on palpation. Distal pulses intact. VZV: immune Rubella: immune Lab Results 08/24/24 01:52 Assessment/Plan Problem List (1) care and examination of lactating mother: Impression: day 1. 34 yo s/p on 08/25/2024 following PROM @ 39+5 weeks gestation. PPD #1 - Routine - Anticipate discharge tomorrow (2) Hemorrhoids during , delivered: Impression: Discussed that hemorrhoids should be treated by increasing fiber content in the diet, administering stool softeners, increasing liquid intake, and scheduled toilet habits. Discussed sitting on a soft ringed pillow/cushion. Discussed home management of OTC oral management (Miralax) as well as sangita seeds. Has been using hydrocortisone, tucks pads and ice with only some relief. Feels she's able to rest and sleep. Discussed adding another topical numbing agent. Hurricane spray prn 6 hours to be available for self administration. If the hurricane spray does not work, will trial emla/ topical lidocaine cream.
[2024-08-25] MEDS: BENZOCAINE/TETRACAINE/BUTAMBEN 20 GM TOP PRN (15:38)
[2024-08-25] MEDS: LIDOCAINE/PRILOCAINE 2.5% CREAM 5 GM TUBE TOP PRN (19:30)
[2024-08-25] MEDS: DOCUSATE SODIUM 100 MG CAPSULE PO SCH (19:31)
--- NOTE | 2024-08-26 11:02 | Discharge Summary ---
Discharge Summary Admit Date: 08/23/24 Discharge Date: 08/26/24 Discharging Provider: YADIEL Du Code Status: Attempt Resuscitation HPI History of Present Illness: Date of Admission: 08/23/2024 Date of Discharge: 08/24/2024 Diagnosis on admission: 1. 34 yo @ 39+5 Weeks Gestation 2. PROM 3. GBS positive 4. Category I tracing Diagnosis on Discharge 1. 34 yo S/P 08/24/2024 @ 2051 2. PPD #2 3. Second degree perineal laceration 3. Exclusively Physical exam: Normocephalic, atraumatic Heart RRR w/o M/G/R Lungs CTAB Normal uterine involution, FF below umbilicus Small rubra bleeding Minimal perineal discomfort. Significant perirectal discomfort (thrombosed hemorroids) Bilateral LE's no edema Mood is good. Brief History: She is a patient of [facility] who presented on 08/23/2024 @39+5 weeks gestation by 11+2 week ultrasound consistent LMP presented to L&D shortly after SROM @ 2141. Cervix was closed, thick, and high vertex presentation by BSUS. GBS positive, treated. Misoprostol administered for cervical ripening followed by induction with low dose oxytocin with a max dose of 6 mu/Min. FHR pattern demonstrated primarily category I tracing with a time of category II resolved with onset of pushing. Normal labor course. Epidural placed upon maternal request. Normal spontaneous vaginal delivery of a viable male infant on 08/24/2024 @ 2051. To achieve uterine homeostasis,she received IV pitocin bolus, 1g TXA and 0.2mg IM Methergine. QBL, 711. weight 3370g. She has been doing well in her course. She is ambulating and tolerating a regular diet. She is urinating without difficulty and her lochia is normal. Her pain is well controlled without narcotic management. She will be discharged to home today on day 2 with a prescription sent to [facility] pharmacy for IBU, tylenol and stool softeners. Her biggest complaint pp has been her hemorroids. Mininmal relief from topical measures. Most relief from cushion for sitting. Reviewed the importance of keeping soft stools/BM and recommendations for bowel care. She intends to follow up with [facility] in 1 week for telehealth 09/01/2024 @ 8308. She has been given precautions to call if she has any new or worsening sx such as fevers, chills, abdominal pain, increasing bleeding, or foul smelling vaginal lochia. preeclamptic precautions reviewed as well. VZV: Immune Rubella: Immune RH: + ALLERGIES Allergies Allergy/AdvReac Type Severity Reaction Status Date / Time No Known Drug Allergies Allergy Verified 08/24/24 08:06 MEDICATIONS Ambulatory Orders Medication Instructions Recorded Confirmed albuterol sulfate 90 mcg/actuation 1 - 2 puff inhalation Q4HR PRN 07/20/24 08/24/24 aerosol inhaler (Ventolin HFA) Shortness Of Air/Wheezing #18 grams famotidine 20 mg tablet (Pepcid) 20 mg PO DAILY PRN REFLUX 08/24/24 08/24/24 vitamin no.167-folic acid 1 tab PO DAILY 08/24/24 08/24/24 400 mcg-dha 25 mg chewable tablet (One-A-Day ) acetaminophen 500 mg capsule 500 mg PO Q6H PRN pain #60 caps 08/26/24 docusate sodium 100 mg capsule 100 mg PO BID #60 caps 08/26/24 docusate sodium 100 mg capsule 100 mg PO BID #90 caps 08/26/24 glycerin-witch armando 12.5 %-50 % 1 pad topical PRN PRN Perineal 08/26/24 topical pads (A.E.R. Witch Armando) Repair #40 ea hydrocortisone-aloe vera 1 % 1 applic topical QID PRN Perineal 08/26/24 topical cream Repair #14.2 grams ibuprofen 600 mg tablet (IBU) 600 mg PO Q6H PRN pain #30 tabs 08/26/24 ibuprofen 800 mg tablet 800 mg PO Q8HR PRN Moderate Pain 08/26/24 (Level 4-6) #90 tabs witch armando 50 % topical pads 1 pad topical BID PRN skin 08/26/24 (Hemorrhoidal (witch armando)) irritation #100 ea LABS 08/24/24 01:52 QUALITY (Female Hip Fx Only) Was patient sent home on osteoporosis medication?: No TIME SPENT Time Spent in Discharge (Minutes): 30 Discharge Plan Discharge Patient Disposition: RUSSELL, Self Care Medically Cleared Date:: 08/26/24 Prescriptions: New ibuprofen 800 mg Tablet 800 mg PO Q8HR PRN (Reason: Moderate Pain (Level 4-6)) Qty: 90 0RF hydrocortisone-aloe vera 1 % Cream 1 applic topical QID PRN (Reason: Perineal Repair) Qty: 14.2 0RF docusate sodium 100 mg Capsule 100 mg PO BID Qty: 90 0RF A.E.R. Witch Armando 12.5-50 % Pads, Medicated 1 pad topical PRN PRN (Reason: Perineal Repair) Qty: 40 0RF Continued albuterol sulfate [Ventolin HFA] 200 PUFFS/18 GM HFA aerosol inhaler 1 - 2 puff inhalation Q4HR PRN (Reason: Shortness Of Air/Wheezing) Qty: 18 0RF famotidine [Pepcid] 20 mg tablet 20 mg PO DAILY PRN (Reason: REFLUX) Patient Comments: Take 1 tablet by mouth once a day for reflux One-A-Day 400 mcg- 25 mg tablet,chewable 1 tab PO DAILY Discontinued aspirin 81 mg tablet,delayed release (DR/EC) 81 mg PO DAILY No Action ibuprofen [IBU] 600 mg tablet 600 mg PO Q6H PRN (Reason: pain) Qty: 30 2RF Rx Instructions: PRN pain acetaminophen 500 mg capsule 500 mg PO Q6H PRN (Reason: pain) Qty: 60 0RF docusate sodium 100 mg capsule 100 mg PO BID Qty: 60 0RF Hemorrhoidal (witch armando) 50 % pads, medicated 1 pad topical BID PRN (Reason: skin irritation) Qty: 100 0RF Print Language: Mozambican Follow-up Care: Selena Milian, VP INFORMATICS [Primary Care Provider] -
[2024-08-26 15:02] VITALS: O2SAT 99
--- NOTE | 2024-08-26 15:51 | Labor Flowsheet ---
Labor Flowsheet Datetime Report Generated by CPN: 08/26/2024 15:51 Datetime: 08/26/2024 10:12 VITAL SIGNS NBP Sys/Heidi/Mean (mmHg): 125 : 77 : 88 Pulse: 89 Datetime: 08/24/2024 23:05 SpO2 (%): 97 Datetime: 08/24/2024 23:00 Stage of : Recovery PAIN Pain Scale: 0 Pain Presence: None/Denies Pain Type: N/A Datetime: 08/24/2024 22:15 Respirations: 17 Datetime: 08/24/2024 21:15 Temperature (C): 36.7 Temperature Route: Oral Datetime: 08/24/2024 21:00 LaborFlag: Labor Datetime: 08/24/2024 20:52 Comments: viable delivery of baby boy Datetime: 08/24/2024 20:50 ASSESSMENT A Monitor Mode: Telemetry FHR Baseline Rate : 140 Variability: Moderate 6-25 bpm Accelerations: None Decelerations: Late Category: Category II Datetime: 08/24/2024 20:45 UTERINE ACTIVITY Monitor Mode: External Frequency (min): 3-8min Quality: Moderate Duration (sec): 60-90sec Pattern: Normal: <= 5 Contractions in 10 Minutes Resting Tone (Palpate): Relaxed Datetime: 08/24/2024 20:34 PATIENT CARE Oxygen Method: Room Air Datetime: 08/24/2024 20:09 Communication Comments: pt pushing Datetime: 08/24/2024 20:08 I/O Interventions: Garcia Discontinued Datetime: 08/24/2024 20:03 Patient Position/Activity: Hands-Knees Datetime: 08/24/2024 19:57 VAGINAL EXAM Dilatation (cm): 10.0 Effacement (%): 100 Station: 1 Exam by: m ingram Datetime: 08/24/2024 19:41 Patient Care Comments: peanut ball Datetime: 08/24/2024 18:45 COMMUNICATION Communication: RN Reviewed Strip Datetime: 08/24/2024 18:30 Pitocin Checklist: At Least 1 Acceleration of 15 bpm x 15 Seconds in 30 Minutes or Adequate Variabi lity; No More than 1 Late Deceleration Occurred in Past 30 Minutes; No More than 2 Variable Decelerat ions > 60 Seconds in Duration and decreasing >60 bpm in 30 minutes; No More than 5 Uterine Contractio ns in 10 Minutes for any 20 Minute Interval; Uterus Palpates Soft between Contractions; IUPC Resting Tone less than 25 mmHg MEDICATIONS Pitocin (milliunits): Increased to @ 4 Datetime: 08/24/2024 18:00 Pain Goal: 4 Pain Assessment Comments: Patient states pain is much better from earlier Datetime: 08/24/2024 17:21 Epidural Procedure: Cath Placed; Test Dose Datetime: 08/24/2024 17:13 PROCEDURE TIME OUT Procedure Verify: Correct Patient Identity; Correct Side and Site are Marked; Accurate Procedure Co nsent Form; Agreement on Procedure to be Done; Correct Patient Position; Relevant Images and Results are Properly Labeled and Displayed; Addressed Need to Administer Antibiotics or Fluids for Irrigation ; Safety Precautions Based on Patient History or Medication Use ANESTHESIA Anesthesia Plans: Epidural Epidural Positioning: Sitting Anesthesia Comments: C. Chappell, CHEMICAL ENGINEERING TEACHER at bedside for epidural Datetime: 08/24/2024 14:47 Pain Location: Abdomen; Back Datetime: 08/24/2024 14:00 Monitor Interventions for UA: [place] Adjusted Contraction Comments: poor tracing d/t maternal position Datetime: 08/24/2024 13:04 Vaginal Bleeding: Normal Show Cervix, Consistency: Soft Cervix, Position: Posterior Datetime: 08/24/2024 12:54 Monitor Interventions for FHR: Ultrasound Adjusted Datetime: 08/24/2024 12:30 FHR Baseline Changes: No Baseline Change Datetime: 08/24/2024 11:50 Pain Coping: Breathing Through Contractions Comfort Measures: Breathing/Relaxation; Family Support Datetime: 08/24/2024 11:38 Cervical Ripening Agents: Cytotec @ 50 Datetime: 08/24/2024 11:29 Antibiotics: Ampicillin IV 1 Gm Datetime: 08/23/2024 23:38 Procedures: Bedside Ultrasound Done Datetime: 08/23/2024 23:01 Membrane Status: Ruptured Membrane Comments: SROM 08/23/24 @ 2142 Datetime: 08/23/2024 23:00 TEACHING Instructional Method: Verbal; Patient Instructed; Family/Support Person Instructed; Verbalized Unde rstanding Plan of Care: Plan of Care Discussed; Vaginal Delivery; Labor Unit Routine: [place] to Room; Call Turner; Bed; Visiting Policy; Phone/Cell Phone Use; Unit Personnel ; Monitoring; Safety/Fall Risk Prevention; Bathroom Privileges; Medications Labor/Induction: Labor Stages; Augmentation; Activity Pain Management: PRN Medications; Pain Scale/Goals; Comfort Measures Medications: Antibiotics Related: Maternal Emotional Changes; Hydration; Activity and Rest Datetime: 08/23/2024 22:44 MATERNAL ASSESSMENT Level of Consciousness: Alert DTR's/Clonus: DTRs 3+; No Clonus Headache: Denies Breath Sounds, Left: Clear and Equal Breath Sounds, Right: Clear and Equal Nausea/Vomiting: Denies RUQ Epigastric Pain: Denies Datetime: 08/23/2024 22:37 Membranes Ruptured Date/Time: 08/23/2024 21:42 Membranes Rupture Method: Spontaneous Amniotic Fluid Color: Clear Amniotic Fluid Amount: Moderate Amniotic Fluid Odor: Normal Pool: Positive ROM Test Kit: Positive
== END 2024-08-26 15:50 | disposition home or self-care (01) | DRG 806 ==
LOC: WFO 22:09 → FBP 22:14
PROVIDERS: ADMIT Nurse Practitioner Obstetrics & Gynecology; ATTEND Nurse Practitioner Obstetrics & Gynecology
DX: O42.02 Full-term premature rupture of membranes, onset of labor within 24 hours of rupture; O99.824 Streptococcus B carrier state complicating childbirth; O70.1 Second degree perineal laceration during delivery; O69.81X0 Labor and delivery complicated by cord around neck, without compression, not applicable or unspecified; O22.43 Hemorrhoids in pregnancy, third trimester; Z3A.39 39 weeks gestation of pregnancy; Z37.0 Single live birth